=== PATIENT | female | born 1980 | race African-American/Black ===

== ENCOUNTER 2017-05-04 06:20 | Emergency (ER) | payer SELFPAY ==
[~2017-05-04] VITALS: Ht 160 cm; Wt 135.0 kg
[~2017-05-04 06:20] MED LIST: NAPR5TAB5 PO; ZOFR4TAB3 SL
[2017-05-04 06:22] VITALS: BP 157/72; PULSE 89; RESP 16; TEMP 98.2; O2SAT 100
--- NOTE | 2017-05-04 07:33 | PD ---
HPI Chief Complaint: Chest Pain Time Seen by Provider: 07:29 Travel History International Travel<30 days: No Contact w/Intl Traveler<30days: No Traveled to known affect area: No History of Present Illness HPI cp, sharp, substernal, constant since 2200 PFSH Past Medical History Diminished Hearing: No Hypertension: Yes Reproductive: Yes (LEFT OVARIAN CYST) Immunizations Current: Yes ?: Not LMP: 05/03/17 : 1 Para: 1 Miscarriage: 0 : 0 Ovarian Cysts: Yes (LEFT ) Past Surgical History Abdominal Surgery: Yes () Section: Yes (2006) Gynecologic Surgery: Yes ( X 1 ) Social History Alcohol Use: No Tobacco Use: No Substance Use: No Allergies-Medications (Allergen,Severity, Reaction): Coded Allergies: No Known Allergies (Verified Adverse Reaction, Unknown, 05/04/17) Reported Meds & Prescriptions Reported Meds & Active Scripts Active No Active Prescriptions or Reported Medications Review of Systems General / Constitutional: No: Fever Eyes: No: Visual changes HENT: No: Headaches Cardiovascular: Positive: Chest Pain or Discomfort Respiratory: No: Shortness of Breath Gastrointestinal: No: Abdominal Pain Genitourinary: No: Dysuria Musculoskeletal: No: Pain Skin: No Rash Neurologic: No: Weakness Psychiatric: No: Depression Endocrine: No: Polydipsia Hematologic/Lymphatic: No: Easy Bruising Physical Exam Narrative GENERAL: SKIN: Warm and dry. HEAD: Atraumatic. Normocephalic. EYES: Pupils equal and round. No scleral icterus. No injection or drainage. ENT: No nasal bleeding or discharge. Mucous membranes pink and moist. NECK: Trachea midline. No JVD. CARDIOVASCULAR: Regular rate and rhythm. reproducible cw on palpation RESPIRATORY: No accessory muscle use. Clear to auscultation. Breath sounds equal bilaterally. GASTROINTESTINAL: Abdomen soft, non-tender, nondistended. MUSCULOSKELETAL: Extremities without clubbing, cyanosis, or edema. No obvious deformities. NEUROLOGICAL: Awake and alert. No obvious cranial nerve deficits. Motor grossly within normal limits. Five out of 5 muscle strength in the arms and legs. Normal speech. PSYCHIATRIC: Appropriate mood and affect; insight and judgment normal. Data Data Last Documented VS Vital Signs Date Time Temp Pulse Resp B/P (MAP) Pulse Ox O2 Delivery O2 Flow Rate FiO2 05/04/17 06:22 98.2 89 16 157/72 (100) 100 Room Air Orders Orders Electrocardiogram (05/04/17 06:42) Chest, Pa & Lat (05/04/17 07:29) MDM Medical Decision Making Medical Screen Exam Complete: Yes Emergency Medical Condition: Yes Medical Record Reviewed: Yes Interpretation(s) nsr 79, normal intervals, some baseline motion artifact, no stemi pattern, no low voltage pattern and no diffuse josé or pr depressions noted Differential Diagnosis chest wall pain v pna v ptx Narrative Course ekg nondiagnostic, cxr neg for pna/ptx/rib fx Diagnosis Primary Impression: atypical chest wall pain Patient Instructions: Chest Wall Pain (GEN), General Instructions Scripts Naproxen DR (Naproxen EC) 375 Mg Tabdr 375 MG PO BID, #14 TAB 0 Refills Prov: Jorje Hein MD 05/04/17 Cyclobenzaprine (Flexeril) 10 Mg Tab 10 MG PO TID for Muscle Spasm, #15 TAB 0 Refills Prov: Jorje Hein MD 05/04/17 Disposition: 01 DISCHARGE HOME Condition: Stable Jorje Hein MD May 04, 2017 07:33
[2017-05-04] MEDS ORDERED: CYCL10TA PO (08:45)
[2017-05-04] MEDS ORDERED: NAPR375T4 PO (08:45)
--- NOTE | 2017-05-04 09:30 | RADRPT ---
EXAM DATE/TIME: 05/04/2017 07:55 [facility] COMPARISON: No previous studies available for comparison. INDICATIONS : Chest pain. MEDICAL HISTORY : Hypertension. Left ovarian cyst. SURGICAL HISTORY : section. ENCOUNTER: Initial ACUITY: 1 day PAIN SCORE: 5/10 LOCATION: middle chest FINDINGS: The heart is top normal in size. The pulmonary vascular pattern is normal. The lungs are clear. There is elevation of the right hemidiaphragm. CONCLUSION: 1. Elevation of the right hemidiaphragm. 2. No acute cardiopulmonary disease. Andre Duke MD on May 04, 2017 at 9:26 Board Certified Radiologist. This report was verified electronically.
--- NOTE | 2017-05-04 18:06 | EKG ---
Date Performed: 05/04/2017 Time Performed: 06:42:57 PTAGE: 36 years EKG: Sinus rhythm NORMAL ECG PREVIOUS TRACING 06/19/2008 2 12.47.06 Compared to prior tracing no significant change DOCTOR: Canelo Toribio Interpretating Date/Time 05/04/2017 18:04:01
== END 2017-05-04 09:33 | disposition home or self-care (01) ==
LOC: NEPE 06:20
DX: R07.89 Other chest pain (principal)
CPT/HCPCS: 71046; 93005; 99284